=== PATIENT | female | born 1985 | race Caucasian/White ===

== ENCOUNTER 2020-04-05 02:29 | Inpatient (IN) | payer OTHER, SELFPAY ==
[2020-04-05] VITALS (69 sets, daily range): BP systolic 79–203; BP diastolic 36–167; PULSE 57–269; RESP 14–18; TEMP 36.2–37.1; O2SAT 99–100; BMI 24.0
[2020-04-05 02:56] LABS: Basophils Percent Auto 0.4 % (0.2-1.2); Eosinophils Absolute Auto 0.1 K/mm3 (0-0.3); Eosinophils Percent Auto 1.4 % (0-4.4); Hematocrit 37.9 % (37.0-47.0); Hemoglobin 12.9 g/dL (12.0-15.0); Immature Granulocyte Absolute 0.03 K/mm3 (0.00-0.031); Immature Granulocyte Percent A 0.3 % (0-0.5); Lymphocytes Absolute Auto 2.78 K/mm3 (0.9-3.2); Lymphocytes Percent Auto 27.6 % (18.3-44.2); Mean Corpuscular Hemoglobin 30.8 pg (26-34); Mean Corpuscular Volume 90.5 fl (80-100); Mean Platelet Volume 9.8 fl (7.4-10.4); Monocytes Absolute Auto 0.6 K/mm3 (0.1-0.6); Monocytes Percent Auto 6.4 % (2.6-8.5); Neutrophils Absolute Auto 6.4 K/mm3 (1.3-6.7); Neutrophils Percent Auto 63.9 % (45.5-73.1); Platelet Count Result 223 k/mm3 (150-375); Red Blood Count 4.19 M/mm3 (4.2-5.4); Red Cell Distribution Width 13.2 % (11.5-14.5); White Blood Count 10.1 K/mm3 (4.5-10.0)
--- NOTE | 2020-04-05 02:56 | LDADM ---
This patient, Adrienne Duvall, was admitted to Labor/Delivery/Recovery 107 on 04/05/20 at 02:29. Plans for labor, pain management and were discussed with patient. Patient/family oriented to hospital policies and general routines including ID bracelet, bed and alarms, visiting hours, pain management, procedures, bathroom and other care routines, personal items, smoking policy, room service/diet and guest tray routines, security routines, and visiting hours. Patient/Family are encouraged to report perceived risks to care and to ask questions if they do not understand what they are told or what they should do. See OBIX for further documentation.
[2020-04-05] MEDS: LACTATED RINGERS 1,000 ML 125 ML IV CONT ×2 (03:02→03:49)
--- NOTE | 2020-04-05 03:22 | P.PNAN_ITS ---
Anes - Eval Pre Procedure Procedure: labor epidural Date/Time: 04/05/20 03:22 Surgeon: angella Preop Diagnosis: pain during labor Pre Op Diagnosis: Leaking Patient Data Age: 34 Gender: F Height: Weight: Last Vital Signs Temp 36.8 C 04/05/20 03:04 Pulse 90 04/05/20 03:15 BP 108/77 04/05/20 03:15 Pulse Ox 100 04/05/20 03:19 Allergies Allergy/AdvReac Type Severity Reaction Status Date / Time No Known Allergies Allergy Unknown Unverified 10/23/17 13:33 Home Medications Medication Instructions Recorded Confirmed Type PNV cmb#95-ferrous fumarate-FA 1 tablet PO DAILY 03/31/20 03/31/20 History [] Laboratory Tests 04/05/20 04/05/20 02:50 02:50 WBC 10.1 K/mm3 H K/mm3 (4.5-10.0) RBC 4.19 M/mm3 L M/mm3 (4.2-5.4) Hgb 12.9 g/dL g/dL (12.0-15.0) Hct 37.9 % % (37.0-47.0) MCV 90.5 fl fl (80-100) MCH 30.8 pg pg (26-34) MCHC 34.0 g/dl g/dl (32-36) RDW 13.2 % % (11.5-14.5) Plt Count 223 k/mm3 k/mm3 (150-375) MPV 9.8 fl fl (7.4-10.4) Immature Gran % (Auto) 0.3 % % (0-0.5) Neut % (Auto) 63.9 % % (45.5-73.1) Lymph % (Auto) 27.6 % % (18.3-44.2) [place] % (Auto) 6.4 % % (2.6-8.5) Eos % (Auto) 1.4 % % (0-4.4) Baso % (Auto) 0.4 % % (0.2-1.2) Lymph # (Auto) 2.78 K/mm3 K/mm3 (0.9-3.2) [place] # (Auto) 0.6 K/mm3 K/mm3 (0.1-0.6) Eos # (Auto) 0.1 K/mm3 K/mm3 (0-0.3) Baso # (Auto) 0.0 K/mm3 K/mm3 (0.0-0.1) Abs Immat Gran (auto) 0.03 K/mm3 K/mm3 (0.00-0.031) Absolute Neuts (auto) 6.4 K/mm3 K/mm3 (1.3-6.7) Absolute Nucleated RBC 0.0 K/mm3 K/mm3 (0.0-0.012) Nucleated RBC % 0.0 % % (0.0-0.2) RPR Pending Patient hx anesthesia problems: none Family hx anesthesia problems: none PMFSH Social History Social History Smoking status: Never smoker Second hand tobacco smoke exposure: No Substance use: never Gender identity (if verbalized by the patient): Female Spiritual care concerns: No Exam Day of Procedure 04/05/20 03:22
[2020-04-05] MEDS: OXYTOCIN 30 UNITS/NS 500 ML 30 UNITS/500 ML BAG 999 UNITS IV CONT (04:18)
--- NOTE | 2020-04-05 04:55 | PM.OBPRVD ---
OB - Delivery Note Procedure Delivery date: 04/05/20 events: Labor < 37 Weeks Induction method: none Delivery monitor: external FHT Route of delivery: Episiotomy description: None Laceration Description: None Specimen: No Quantitative Blood Loss (ml): 58 Anesthesia type: Epidural Disposition: floor [place] Baby Date of : 04/05/20 Time of : 04:46 Weeks of gestation at delivery: 36 presentation: vertex position: Right Occiput Anterior Placenta delivery description: Spontaneous cord vessel description: 3 Vessels and Nuchal Cord score one minute: 8 score five minutes: 9
--- NOTE | 2020-04-05 04:58 | PM.IMHP ---
H&P: HPI History of Present Illness Date/Time: 04/05/20 04:58 Chief Complaint: srom Narrative: Adrienne Duvall is a 34 year old female She 3 P2 a whose last menstrual period was 07/23/2019, EDC is 04/28/2020, presents with spontaneous rupture membranes prior to admission. She is negative for group B strep. Her is uncomplicated. She is 35-,6/7 weeks with an early visit confirming dates. Review of Systems Review of Systems: All systems reviewed & are unremarkable except as noted in HPI and below PMFSH Social History Social History Smoking status: Never smoker Second hand tobacco smoke exposure: No Substance use: never Gender identity (if verbalized by the patient): Female Spiritual care concerns: No Meds Home Medications and Allergies Home Medications Medication Instructions Recorded Confirmed Type PNV cmb#95-ferrous fumarate-FA 1 tablet PO DAILY 03/31/20 03/31/20 History [] Allergies Allergy/AdvReac Type Severity Reaction Status Date / Time No Known Allergies Allergy Unknown Unverified 10/23/17 13:33 Vital Signs Vital Signs - 24 hr 04/05/20 02:41 04/05/20 02:45 04/05/20 03:00 Temperature Pulse Rate 81 79 80 Blood Pressure 107/70 104/73 112/75 Pulse Oximetry 04/05/20 03:04 04/05/20 03:15 04/05/20 03:19 Temperature 98.2 F Pulse Rate 90 Blood Pressure 108/77 Pulse Oximetry 100 04/05/20 03:24 04/05/20 03:25 04/05/20 03:26 Temperature Pulse Rate 87 Blood Pressure 117/86 99/78 L Pulse Oximetry 100 04/05/20 03:27 04/05/20 03:29 04/05/20 03:30 Temperature Pulse Rate 93 90 Blood Pressure 106/77 117/77 Pulse Oximetry 100 04/05/20 03:33 04/05/20 03:34 04/05/20 03:35 Temperature Pulse Rate 74 82 Blood Pressure 111/68 102/67 Pulse Oximetry 100 04/05/20 03:38 04/05/20 03:39 04/05/20 03:41 Temperature Pulse Rate 81 85 Blood Pressure 122/59 L 106/88 113/88 Pulse Oximetry 100 04/05/20 03:43 04/05/20 03:44 04/05/20 03:45 Temperature Pulse Rate 92 Blood Pressure 124/95 H 116/48 L Pulse Oximetry 100 04/05/20 03:46 04/05/20 03:48 04/05/20 03:49 Temperature Pulse Rate 96 97 Blood Pressure 96/46 L 91/36 L Pulse Oximetry 100 04/05/20 03:50 04/05/20 03:52 04/05/20 03:54 Temperature Pulse Rate 91 108 H Blood Pressure 95/68 L 94/67 L Pulse Oximetry 100 04/05/20 03:55 04/05/20 03:57 04/05/20 03:59 Temperature Pulse Rate 137 H 269 H Blood Pressure 96/49 L 92/70 L Pulse Oximetry 100 04/05/20 04:00 04/05/20 04:02 04/05/20 04:04 Temperature Pulse Rate 85 104 H Blood Pressure 98/63 L 94/58 L Pulse Oximetry 100 04/05/20 04:05 04/05/20 04:07 04/05/20 04:09 Temperature Pulse Rate 91 93 Blood Pressure 91/56 L 79/52 L Pulse Oximetry 100 04/05/20 04:10 04/05/20 04:12 04/05/20 04:14 Temperature Pulse Rate 99 193 H Blood Pressure 88/59 L 81/64 L Pulse Oximetry 100 04/05/20 04:15 04/05/20 04:17 04/05/20 04:19 Temperature Pulse Rate 86 90 Blood Pressure 94/48 L 96/63 L Pulse Oximetry 100 04/05/20 04:20 04/05/20 04:22 04/05/20 04:24 Temperature Pulse Rate 93 102 H Blood Pressure 91/58 L 85/66 L Pulse Oximetry 100 04/05/20 04:25 04/05/20 04:27 04/05/20 04:29 Temperature Pulse Rate 140 H 109 H Blood Pressure 87/72 L 84/57 L Pulse Oximetry 100 04/05/20 04:30 04/05/20 04:33 04/05/20 04:34 Temperature Pulse Rate 135 H 83 Blood Pressure 88/67 L 100/50 L Pulse Oximetry 100 04/05/20 04:35 04/05/20 04:37 04/05/20 04:38 Temperature 97.1 F L Pulse Rate 235 H Blood Pressure 115/88 123/108 H Pulse Oximetry 04/05/20 04:39 04/05/20 04:40 04/05/20 04:45 Temperature Pulse Rate 76 105 H Blood Pressure 140/106 H 103/62 Pulse Oximetry 100 Exam Const: General: no acute distress Eyes: Gener
[2020-04-05] MEDS: OXYTOCIN 30 UNITS/NS 500 ML 30 UNITS/500 ML BAG 125 UNITS IV CONT (05:25)
[2020-04-05 07:40] LABS: Rapid Plasma Reagin Non-Reactive (NonReactive)
[2020-04-05] MEDS: DOCUSATE SODIUM 100 MG CAPSULE PO (09:27)
[2020-04-05] MEDS: IBUPROFEN 600 MG TABLET PO ×2 (09:27→19:50)
[2020-04-05] MEDS: MULTIVIT/MIN/PREN/FOL AC/IRON TABLET 1 TAB PO (09:27)
[2020-04-06 00:05] VITALS: BP 99/60; PULSE 62; RESP 13; TEMP 36.5; O2SAT 100
[2020-04-06 04:40] VITALS: BP 102/73; PULSE 59; RESP 13; TEMP 36.7; O2SAT 99
[2020-04-06] MEDS: IBUPROFEN 600 MG TABLET PO ×2 (04:41→11:00)
[2020-04-06 06:53] LABS: Hemoglobin 12.1 g/dL (12.0-15.0)
--- NOTE | 2020-04-06 07:36 | WPDANLDPN2 ---
Anes-Prog Note L&D Date/Time: 04/06/20 07:36 Comfortable throughout: labor and delivery Neuraxial method: epidural Epidural/Spinal procedure site: clean & non-tender Neuro status: Neuro function grossly intact. Cardiovascular status: normal Respiratory status: normal Airway patency: baseline Mental status: baseline Post-Op hydration status: normal Vital Signs: Last Vital Signs Temp 36.7 C 04/06/20 04:40 Pulse 59 L 04/06/20 04:40 Resp 13 04/06/20 04:40 BP 102/73 04/06/20 04:40 Pulse Ox 99 04/06/20 04:40 Pain score (VAS): 0 Post-procedural complaints: none Patient feedback: Patient satisfied with anesthetic care.
[2020-04-06 07:40] VITALS: BP 99/68; PULSE 87; RESP 18; TEMP 36.8; O2SAT 99
[2020-04-06 08:30] VITALS: PULSE 87; RESP 18; O2SAT 99
--- NOTE | 2020-04-06 08:38 | PM.OBPNVD ---
OB - PN: Subj Subjective Date/time seen: 04/06/20 08:38 Narrative: Pain OK. Would like to go home if baby is able to be discharged. OB - PN: Obj Data Labs CBC & Chem 7: 04/06/20 04:48 Labs: Laboratory Results - last 24 hr 04/06/20 04:48 Hgb 12.1 Hct 37.0 OB - PN A/P Plan Comments: A: PPD#1, doing well. P: Home if OK with peds. F/u 6 weeks. Exam Psych: Other: AVSS ABD soft, nontender, fundus firm EXT nontender
--- NOTE | 2020-04-06 08:41 | PM.OBDSVD ---
DS: Admitting Diagnosis Admitting Diagnosis Admitting Diagnosis: IUP at 35 6/7 weeks SROM DS: Discharge Diagnosis Discharge Diagnosis (1) delivery: Code(s): O60.10X0 - labor with delivery, unspecified trimester, not applicable or unspecified Status: Acute OB - DS: Summary OB Procedures : None OB Procedures Intrapartum: Spontaneous Vag Delivery OB Procedures: : None Time Spent with Patient Time attestation: Total time spent providing and/or coordinating discharge services: DS: Data Data Completed and Pending Labs on day of discharge: Labs from last 24 hours 04/06/20 04:48 Hgb 12.1 Hct 37.0 Discharge Plan Discharge Attending physician on discharge: Solomon Temple Discharging Clinician: Solomon Temple Patient Disposition: Home, Self-Care Activity: pelvic rest Diet: regular Discharge Instructions: Call or return if temperature above 100.4? F, increased abdominal pain, increased vaginal bleeding or any new problems. Stand Alone Forms: General Discharge Information Follow-up/Referrals: Solomon Temple MD [Physician] - 6 Weeks Discharge Medications: New ibuprofen 600 mg tablet 600 mg PO Q6H PRN (Reason: cramps) Qty: 30 RF: 0 No Action PNV cmb#95-ferrous fumarate-FA [] 28 mg iron- 800 mcg Tablet 1 tablet PO DAILY RF: 0 Date of admission: 04/05/20 02:29 Primary Care Provider: PHYSICIAN,DIRECTOR OF COMPENSATION Admitting Provider: Solomon Temple Attending physician on admission: Solomon Temple Condition: Stable
--- NOTE | 2020-04-06 12:43 | PC.NURSE ---
Patient was given the opportunity to view the discharge video Mother & Baby Care, The First Two Weeks and to ask questions. Patient declined viewing the video and has been given the mother/baby guide for home reference.
[2020-04-08 11:24] VITALS: BP 100/65; PULSE 86; RESP 20; TEMP 36.8; O2SAT 100
== END 2020-04-06 18:15 | disposition home or self-care (01) | DRG 807 ==
LOC: ANHLDR 02:52 → ANHOB2 08:13
PROVIDERS: Admitting Provider Obstetrics & Gynecology; Family Provider Physician Assistant; Visit Provider Obstetrics & Gynecology
DX: O69.81X0 Labor and delivery complicated by cord around neck, without compression, not applicable or unspecified (principal); Z37.0 Single live birth; Z3A.36 36 weeks gestation of pregnancy
CPT/HCPCS: 36415; 84112; 85014; 85018; 85025; 86592; 86850; 86900; 86901; A9270; J2590; J2795; J7120